=== PATIENT | female | born 1940 | race Asian ===

== ENCOUNTER → 2020-01-20 | Emergency (ER) | payer MEDICARE, MEDICAID ==
[~2020-01-20] VITALS: Ht 157.5 cm; Wt 54.4 kg
[~2020-01-20] MED LIST: HYDROcodone-ACET 10/325MG TAB PO ONE; cloNIDine HCL 0.1 MG TAB PO ONE
[2020-01-20 09:29] VITALS: BP 121/52
== END | disposition home or self-care (01) ==
LOC: ER 07:06 → EDBD 07:06
DX: I10 Essential (primary) hypertension (principal); M47.896 Other spondylosis, lumbar region
CPT/HCPCS: 72100; 72170; 93005

== ENCOUNTER 2021-12-27 11:03 | Emergency (ER) | payer OTHER, MEDICAID ==
[~2021-12-27] VITALS: Ht 152.4 cm; Wt 43.1 kg
[2021-12-27 12:50] LABS: Basophils # (auto) 0 10 ^3/uL (0-0.2); Eosinophils # (auto) 0 10 ^3/uL (0-0.8); Neutrophils # (auto) 1.8 10 ^3/uL (1.6-8.6)
[2021-12-27 12:52] LABS: Basophils % (auto) 0.8 % (0.0-2.0); Eosinophils % (auto) 0.8 % (0.0-7.0); Hematocrit 37.7 % (36.0-46.0); Lymphocytes # (auto) 1.5 10 ^3/uL (0.4-5.4); Lymphocytes % (auto) 40.6 % (10.0-50.0); Mean Corpuscular Hemoglobin 34.4 pg (28.0-32.0); Mean Corpuscular Hgb Conc. 34.5 g/dL (32.0-36.0); Mean Corpuscular Volume 99.9 fL (80.0-100.0); Monocytes # (auto) 0.3 10 ^3/uL (0-1.3); Neutrophils % (auto) 48.8 % (37.0-80.0); Nucleated Red Blood Cells % 0.2 %; Red Blood Cells 3.77 10^6/uL (4.0-5.20); Red Cell Distribution Width 12.4 % (11.8-14.3); White Blood Cell 3.6 10^3/uL (4.4-10.8)
[2021-12-27 13:14] LABS: Potassium 4.2 mmol/L (3.5-5.1)
[2021-12-27 13:31] LABS: Albumin 3.8 g/dL (3.4-5.0); BUN/Creatinine Ratio 19.3; Bilirubin, Total 0.4 mg/dL (0.2-1.0); Calcium 8.8 mg/dL (8.5-10.1); Magnesium 2.5 mg/dL (1.6-2.6); Total Protein 7.7 g/dL (6.4-8.2)
[2021-12-27 16:10] VITALS: BP 128/74
== END 2021-12-27 16:29 | disposition home or self-care (01) ==
LOC: ER 11:03
DX: R07.89 Other chest pain (principal); K21.9 Gastro-esophageal reflux disease without esophagitis; I10 Essential (primary) hypertension; M79.10 Myalgia, unspecified site
CPT/HCPCS: 36415; 74176; 80053; 83690; 83735; 84484; 85025; 93005

== ENCOUNTER 2023-02-28 20:16 | Inpatient (IN) | payer OTHER ==
[~2023-02-28] VITALS: Ht 152.4 cm; Wt 45.9 kg
[2023-02-28] MEDS ORDERED: ONDANSETRON HCL 4 MG/2 ML VIAL IV ONE (20:30)
[2023-02-28] MEDS ORDERED: MORPHINE SULFATE INJ 2 MG/ml SYRG IV ONE (20:30)
[2023-02-28 21:12] LABS: Basophils # (auto) 0 10 ^3/uL (0-0.2); Eosinophils # (auto) 0 10 ^3/uL (0-0.8); Lymphocytes # (auto) 1.1 10 ^3/uL (0.4-5.4); Mean Corpuscular Volume 101.9 fL (80.0-100.0); Red Cell Distribution Width 12.1 % (11.8-14.3)
[2023-02-28 21:14] LABS: Basophils % (auto) 0.3 % (0.0-2.0); Eosinophils % (auto) 0.2 % (0.0-7.0); Hematocrit 35.4 % (36.0-46.0); Hemoglobin 11.9 g/dL (12.2-16.2); Lymphocytes % (auto) 15.2 % (10.0-50.0); Mean Corpuscular Hemoglobin 34.2 pg (28.0-32.0); Mean Corpuscular Hgb Conc. 33.5 g/dL (32.0-36.0); Monocytes # (auto) 0.7 10 ^3/uL (0-1.3); Monocytes % (auto) 9.2 % (0.0-12.0); Neutrophils # (auto) 5.3 10 ^3/uL (1.6-8.6); Neutrophils % (auto) 75.1 % (37.0-80.0); Red Blood Cells 3.48 10^6/uL (4.0-5.20); White Blood Cell 7.1 10^3/uL (4.4-10.8)
[2023-02-28 21:34] LABS: Albumin 3.7 g/dL (3.4-5.0); Calcium 8.6 mg/dL (8.5-10.1); Potassium 3.7 mmol/L (3.5-5.1)
[2023-02-28 21:41] LABS: BUN/Creatinine Ratio 20.8 (10.0-20.0); Bilirubin, Total 0.7 mg/dL (0.2-1.0)
[2023-02-28] MEDS ORDERED: ACETAMINOPHEN 325 MG TAB PO PRN (22:45)
[2023-02-28] MEDS ORDERED: MORPHINE SULFATE INJ 2 MG/ml SYRG IV PRN (22:45)
[2023-02-28] MEDS ORDERED: ONDANSETRON HCL 4 MG/2 ML VIAL IV PRN (22:45)
[2023-03-01] MEDS: PANTOPRAZOLE 40 MG TAB PO SCH (10:16)
[2023-03-01] MEDS: ENOXAPARIN SOD 40 MG/0.4 ML SYRINGE SC SCH (10:35)
[2023-03-01] MEDS: LISINOPRIL 5 MG TAB PO SCH (10:35)
[2023-03-01] MEDS: HYDROcodone-ACET 5/325MG TAB PO PRN (10:37)
[2023-03-01 16:29] VITALS: BP 114/65
[2023-03-01 17:15] VITALS: BP 114/65
[2023-03-01] MEDS ORDERED: FAMO20TA10 PO (18:15)
[2023-03-01] MEDS ORDERED: METO25TA5 PO (18:15)
[2023-03-01] MEDS ORDERED: CALC200S4 (18:15)
[2023-03-01] MEDS ORDERED: CELE200C PO (18:15)
[2023-03-01 22:00] VITALS: BP 122/74
[2023-03-02 05:00] VITALS: BP 120/66
[2023-03-02 06:29] LABS: Potassium 3.4 mmol/L (3.5-5.1)
[2023-03-02 06:34] LABS: Basophils # (auto) 0 10 ^3/uL (0-0.2); Basophils % (auto) 0.3 % (0.0-2.0); Hemoglobin 10.9 g/dL (12.2-16.2); White Blood Cell 5.3 10^3/uL (4.4-10.8)
[2023-03-02 06:37] LABS: Eosinophils # (auto) 0.1 10 ^3/uL (0-0.8); Hematocrit 32.3 % (36.0-46.0); Lymphocytes % (auto) 19.3 % (10.0-50.0); Mean Corpuscular Hemoglobin 34.5 pg (28.0-32.0); Mean Corpuscular Hgb Conc. 33.7 g/dL (32.0-36.0); Mean Corpuscular Volume 102.5 fL (80.0-100.0); Monocytes # (auto) 0.5 10 ^3/uL (0-1.3); Monocytes % (auto) 10.3 % (0.0-12.0); Neutrophils # (auto) 3.6 10 ^3/uL (1.6-8.6); Neutrophils % (auto) 69.1 % (37.0-80.0); Nucleated Red Blood Cells % 0.1 %; Red Blood Cells 3.16 10^6/uL (4.0-5.20); Red Cell Distribution Width 12.2 % (11.8-14.3)
[2023-03-02 06:44] LABS: BUN/Creatinine Ratio 24.6 (10.0-20.0); Bilirubin, Total 0.6 mg/dL (0.2-1.0); Calcium 8.1 mg/dL (8.5-10.1); Total Protein 6.4 g/dL (6.4-8.2)
[2023-03-02 09:00] VITALS: BP 119/55
[2023-03-02] MEDS: PANTOPRAZOLE 40 MG TAB PO SCH (10:12)
[2023-03-02] MEDS: LISINOPRIL 5 MG TAB PO SCH (10:13)
[2023-03-02] MEDS: ENOXAPARIN SOD 40 MG/0.4 ML SYRINGE SC SCH (10:13)
[2023-03-02 12:54] VITALS: BP 105/61
[2023-03-02 17:07] VITALS: BP 104/61
[2023-03-02 22:00] VITALS: BP 90/44
[2023-03-03 05:47] VITALS: BP 118/70
[2023-03-03 09:00] VITALS: BP 116/68
[2023-03-03] MEDS ORDERED: POTASSIUM CHL 20 Meq TABLET PO ONE (09:00)
[2023-03-03] MEDS ORDERED: ERGOCALCIFEROL 50,000 UNIT(1.25MG) CAP PO SCH (10:00)
[2023-03-03] MEDS: PANTOPRAZOLE 40 MG TAB PO SCH (10:01)
[2023-03-03] MEDS: LISINOPRIL 5 MG TAB PO SCH (10:02)
[2023-03-03] MEDS: ENOXAPARIN SOD 40 MG/0.4 ML SYRINGE SC SCH (10:02)
[2023-03-03 12:58] VITALS: BP 132/71
[2023-03-03 15:12] VITALS: BP 132/71
[2023-03-03] MEDS: HYDROcodone-ACET 5/325MG TAB PO PRN (15:50)
[2023-03-03 16:58] VITALS: BP 120/73
== END 2023-03-03 17:27 | disposition home or self-care (01) | DRG 534 ==
LOC: ER 20:16 → EDBD 20:16 → OVERFLOW 22:41 → WEST WING 03-01 16:25
PROVIDERS: ADMIT Nurse Practitioner; ATTEND Internal Medicine
DX: S72.421A Displaced fracture of lateral condyle of right femur, initial encounter for closed fracture (principal); M25.08 Hemarthrosis, other specified site; S70.01XA Contusion of right hip, initial encounter; S80.01XA Contusion of right knee, initial encounter; I10 Essential (primary) hypertension; R26.2 Difficulty in walking, not elsewhere classified; Z96.641 Presence of right artificial hip joint; M85.80 Other specified disorders of bone density and structure, unspecified site; K21.9 Gastro-esophageal reflux disease without esophagitis; W18.39XA Other fall on same level, initial encounter; M25.40 Effusion, unspecified joint; M94.251 Chondromalacia, right hip; Y93.89 Activity, other specified; Y92.89 Other specified places as the place of occurrence of the external cause; Y99.8 Other external cause status
CPT/HCPCS: 36415; 72192; 72195; 73562; 73721; 80053; 82306; 83036; 84443; 85025; 93005; 96372; 96374; 96375; 97163; G0378; J2405